=== PATIENT | male | born 1950 | race Hispanic/Latino ===

== ENCOUNTER → 2019-04-06 | Outpatient (CLI) | payer OTHER ==
--- NOTE | 2019-04-06 15:32 | Diagnostic Imaging Report ---
CT scan of the RIGHT WRIST, WITHOUT contrast. TECHNIQUE: Standard departmental protocols were used. Sagittal and coronal reformatted images were obtained. PROTOCOL: Routine COMPLICATIONS: None RADIATION DOSE: Total DLP = 89.82 mGy*cm HISTORY: Fell, landed on wrist, strain COMPARISON: None available FINDINGS: Bones: A linear 5 mm x 4 mm ossific fragment avulsed from the dorsal aspect of the triquetrum. No aggressive osseous lesions. Joints: Multifocal degenerative changes, most notably moderate at the dorsal aspect carpometacarpal joints. Soft tissues: Diffuse scattered atherosclerotic vascular calcifications. IMPRESSION: Acute small avulsion fracture from the dorsal aspect of the triquetrum. Signed by: Dr. Dion Martin D.O., M.M.M. on 04/06/2019 3:28 PM
== END ==
LOC: CT 13:58
PROVIDERS: ATTEND Family Medicine
DX: S66.911A Strain of unspecified muscle, fascia and tendon at wrist and hand level, right hand, initial encounter (principal)